=== PATIENT | female | born 1945 | race Caucasian/White ===

== ENCOUNTER 2016-09-13 08:51 | Emergency (ER) | payer MEDICARE, MEDICAID ==
[2016-09-13] MEDS ORDERED: HYDROcodone/ACETAMIN 5-325 MG* 1 TAB PO ONE (09:22)
[2016-09-13] MEDS ORDERED: Morphine INJ* 10 MG/ML 1 ML SYRINGE IM ONE (09:38)
--- NOTE | 2016-09-13 10:59 | RAD ---
INDICATION: Right humeral pain COMPARISON: Right shoulder same date TECHNIQUE: AP, lateral, and oblique views were obtained. FINDINGS: There is no acute humeral fracture. There is anterior dislocation at the glenohumeral joint. Please for to concurrent right shoulder exam. IMPRESSION: ANTERIOR RIGHT SHOULDER DISLOCATION
--- NOTE | 2016-09-13 11:00 | RAD ---
INDICATION: Right shoulder dislocation COMPARISON: Right humerus same date TECHNIQUE: Routine frontal, Y and axial views were obtained. FINDINGS: There is anterior shoulder dislocation. No acute fracture is seen but postreduction films can reevaluate for occult fracture. No additional findings.. IMPRESSION: ANTERIOR SHOULDER DISLOCATION.
--- NOTE | 2016-09-13 11:03 | ED ---
Upper Extremity Pain - HPI Summary HPI Summary: Patient presents to ED with CC of right arm, shoulder and clavicle pain s/p FOOSH injury 1 hour ago. Pain is 10/10, throbbing and stabbing, does not radiate. She is unable to adduct or abduct the arm at the shoulder. Pain on palpation throughout the shoulder and upper extremity. She states she heard a "snap" sound upon falling. No deformity noted. She is otherwise healthy. PMHx includes spinal stenosis and CAD. She denies hitting her head or LOC. Denies other symptoms at this time. - History of Current Complaint Chief Complaint: EDExtremityUpper Stated Complaint: FALL Time Seen by Provider: 09/13/16 09:02 Hx Obtained From: Patient Mechanism Of Injury: Direct Blow Onset/Duration: Started Hours Ago Timing: Constant Severity Initially: Moderate Severity Currently: Moderate Pain Location: Shoulder, Arm Character: Aching, Throbbing Aggravating Factor(s): Lifting, Flexion, Extension, Internal/External Rotation, Abduction, Adduction Alleviating Factor(s): Nothing Associated Signs & Symptoms: Positive: Weakness Related History: Dominant Hand Right - Risk Factors Non-Orthopedic Risk Factor: Negative DVT Risk Factors: Negative Septic Arthritis Risk Factor: Negative Compartment Syndrome Risk Factors: Pain - Allergies/Home Medications Allergies/Adverse Reactions: Allergies Allergy/AdvReac Type Severity Reaction Status Date / Time Azithromycin [From Zithromax] Allergy Unknown Verified 10/20/13 13:07 Reaction Details Ciprofloxacin [From Cipro] Allergy Rash Verified 07/30/15 15:49 Erythromycin Allergy Unknown Verified 10/20/13 13:07 Reaction Details Penicillins [PCN] Allergy Rash Verified 09/24/13 21:46 Sulfa Antibiotics Allergy Hives Verified 09/24/13 21:46 Tetracycline Allergy Hives Verified 09/24/13 21:46 PMH/Surg Hx/FS Hx/Imm Hx Previously Healthy: Yes Endocrine/Hematology History: Denies: Hx Diabetes Cardiovascular History: Reports: Hx Hypertension Denies: Hx Pacemaker/ICD Sensory History: Denies: Hx Hearing Aid Psychiatric History: Denies: Hx Panic Disorder - Surgical History Surgery Procedure, Year, and Place: CARDIAC STENTS X3 AT [facility] 2009 (3 medtronic endeavor sprint stents - safe at 3T keep ORAL under 2.0 w/kg). HYSTERECTOMY. NOSE SURGERY. RT BREAST TUMORS REMOVED - Immunization History Hx Pertussis Vaccination: No Immunizations Up to Date: Unable to Obtain/Confirm Infectious Disease History: No Infectious Disease History: Denies: Traveled Outside the [place] in Last 30 Days - Social History Occupation: Unemployed Lives: With Family Alcohol Use: None Hx Substance Use: No Substance Use Type: Reports: None Hx Tobacco Use: Yes Smoking Status (MU): Former Smoker Review of Systems Constitutional: Negative Cardiovascular: Negative Respiratory: Negative Positive: no symptoms reported, see HPI Positive: Arthralgia - right shoulder pain with right upper arm pain, Myalgia Skin: Negative Neurological: Negative Psychological: Normal All Other Systems Reviewed And Are Negative: Yes Physical Exam Triage Information Reviewed: Yes Vital Signs On Initial Exam: Initial Vitals Temp Pulse Resp BP Pulse Ox 97.0 F 86 20 166/56 98 09/13/16 08:55 09/13/16 08:55 09/13/16 08:55 09/13/16 08:55 09/13/16 08:55 Vital Signs Reviewed: Yes Appearance: Positive: Well-Appearing, Well-Nourished, Pain Distress Skin: Positive: Warm, Skin Color Reflects Adequate Perfusion Eyes: Positive: EOMI, ARNULFO, Conjunctiva Clear Neck: Positive: Supple, No Lymphadenopathy Respiratory/Lung Sounds: Positive: Clear to Auscultation, Breath Sounds Present Cardiovascular: Positive: Normal, RRR, Pulses are Symmetrical in both Upper and Lower Extremities Musculoskeletal: Positive: Pain @ - right shoulder on palpation, abduction, adduction, Other - sulcus sign over right shoulder suggesting anterior dislocation Neurological: Positive: Sensory/Motor Intact, Alert, Oriented to Person Place, Time Psychiatric: Positive: Other - tearful on exam - [place] Coma Scale Best Eye Response: 4 - Spontaneous Best Motor Response: 6 - Obeys Commands Best Verbal Response: 5 - Oriented Diagnostics - Vital Signs Vital Signs Temp Pulse Resp BP Pulse Ox 09/13/16 09:44 20 09/13/16 09:30 83 174/83 98 09/13/16 09:11 77 98 09/13/16 09:09 158/81 09/13/16 08:55 97.0 F 86 20 166/56 98 - Laboratory Lab Statement: Any lab studies that have been ordered have been reviewed, and results considered in the medical decision making process. Course/Dx - Course Course Of Treatment: Tearful on exam. Patient presents with right shoulder on palpation, abduction, adduction s/p FOOSH. Denies hitting head or LOC. Patient sent to xray of shoulder, humerus and clavicle. Sulcus sign over shoulder suggesting anterior dislocation. Conscious sedation by Dr. Erickson. Patient tolerated well. Exorotation used for reduction with success. Immediate shoulder immobilizer given. 1 week immobilizer instructions with pendulum exercises given. FINDINGS: There is anterior shoulder dislocation. No acute fracture is seen but. postreduction films can reevaluate for occult fracture. No additional findings.. IMPRESSION: ANTERIOR SHOULDER DISLOCATION. Post reduction films shows. IMPRESSION: INTERVAL REDUCTION OF RIGHT SHOULDER DISLOCATION. OSTEOARTHRITIS OF THE AC JOINT. - Diagnoses Differential Diagnosis/HQI/PQRI: Positive: Fracture (Open), Fracture (Closed), Strain, Sprain Provider Diagnoses: Shoulder dislocation Discharge - Discharge Plan Condition: Stable Disposition: HOME Patient Education Materials: Shoulder Dislocation Exercises (GEN) Referrals: Anthony Arechiga MD [Primary Care Provider] - Additional Instructions: Continue with arm sling x 1 week. Gentle exercises starting while sling is in place to reduce the risk of shoulder stiffness Ibuprofen 600mg three times daily For worsening pain or symptoms, you may follow up with ortho. I have given you a referral.
--- NOTE | 2016-09-13 11:04 | RAD ---
INDICATION: Right clavicle COMPARISON: Right shoulder same date TECHNIQUE: AP views were obtained. FINDINGS: No focal bony findings. The soft tissues are normal.. IMPRESSION: NEGATIVE CLAVICLE.
[2016-09-13] MEDS ORDERED: Ondansetron ODT TAB* 4 MG SL ONE (11:37)
[2016-09-13] MEDS ORDERED: fentaNYL* 50 MCG/ML 2 ML VIAL (100 MCG VIAL) IV SLOW PU ONE (11:37)
[2016-09-13] MEDS ORDERED: Flumazenil* 0.1 MG/ML 5 ML MDV IV ONE (11:37)
[2016-09-13] MEDS ORDERED: Ondansetron INJ* 2 MG/ML VIAL IV ONE (12:14)
[2016-09-13] MEDS ORDERED: Midazolam* 1 MG/ML 10 ML VIAL (10 MG) IV ONE (12:20)
[2016-09-13] MEDS ORDERED: Naloxone* 0.4 MG/ML 1 ML VIAL ONE (12:22)
[2016-09-13] MEDS ORDERED: Naloxone* 0.4 MG/ML 10 ML VIAL ONE (12:23)
--- NOTE | 2016-09-13 13:23 | RAD ---
HISTORY: Status post reduction COMPARISONS: September 13, 2016 at 10:18 AM VIEWS: 2, frontal and lateral views of the right shoulder FINDINGS: BONE DENSITY: There is diffuse osteopenia. BONES: There is no displaced fracture. JOINTS: There is osteoarthritis of the AC joint ALIGNMENT: There has been interval reduction of the right shoulder dislocation. The alignment is anatomic SOFT TISSUES: Unremarkable. OTHER FINDINGS: None. IMPRESSION: INTERVAL REDUCTION OF RIGHT SHOULDER DISLOCATION. OSTEOARTHRITIS OF THE AC JOINT
[2016-09-13 13:58] VITALS: BP 164/72
== END 2016-09-13 14:27 | disposition home or self-care (01) ==
LOC: ED 08:51
DX: S43.004A Unspecified dislocation of right shoulder joint, initial encounter (principal); W19.XXXA Unspecified fall, initial encounter; Y93.9 Activity, unspecified; Y92.9 Unspecified place or not applicable; Z87.891 Personal history of nicotine dependence
CPT/HCPCS: 96372; 96374; 99285; A9270-GY; J2250; J2270; J2310; J2405; J3010

== ENCOUNTER 2016-12-13 09:51 | Day surgery (SDC) | payer MEDICARE, MEDICAID ==
--- NOTE | 2016-11-20 07:03 | HP ---
PREOPERATIVE HISTORY AND PHYSICAL: DATE OF ADMISSION/SURGERY: 12/13/16 DATE OF OFFICE VISIT: 11/17/16 ATTENDING PHYSICIAN: Dr. Tushar King * (DICTATED BY YUSUF BRAR) PROCEDURE: Right shoulder arthroscopic decompression, debridement, and rotator cuff repair. CHIEF COMPLAINT: Right shoulder pain. HISTORY OF PRESENT ILLNESS: Ana is a 71-year-old female who presented to the clinic for right shoulder pain due to a complete tear of the supraspinatus tendon with retraction. She was given an injection at her last visit on . The patient states that the injection helped improve her neck pain; however , she continues to have aching shoulder pain in the lateral aspect of her shoulder. The injection did help her significantly increase range of motion of her shoulder. She has failed conservative measures and has, therefore, agreed to undergo a right shoulder arthroscopic decompression, debridement, and rotator cuff repair with Dr. King. PAST MEDICAL HISTORY: GERD, headache, back pain, hypertension, arthritis, fibromyalgia, and coronary artery disease with 5 stents in her heart. PAST SURGICAL HISTORY: Hysterectomy, breast lumpectomy, nose surgery, tonsillectomy, one diagnostic cardiac catheterization and 3 cardiac catheterizations with cardiac stent placement. MEDICATIONS: 1. Hydrocodone/acetaminophen 5/325 take 1 to 2 every 8 hours as needed for pain. 2. Crestor 10 mg 1 by mouth daily. 3. Lisinopril 20 mg 1 by mouth daily. 4. Protonix 40 mg 1 by mouth daily. 5. Vivelle-Dot 0.1 mg per day, 1 patch twice weekly. 6. Angelina D 12-Hour, allergy and congestion as needed. 7. Metoprolol succinate ER 50 mg once daily. 8. Aspirin low dose 81 mg once daily. 9. Hydrochlorothiazide 12.5 mg daily. 10. Isosorbide mononitrate ER 30 mg once daily. 11. Clopidogrel bisulfate 75 mg once daily. 12. Nitroglycerin 0.4 mg to use as needed for chest pain. ALLERGIES: PENICILLIN, TETRACYCLINE, and SULFA ANTIBIOTICS. FAMILY HISTORY: Positive for heart disease and diabetes. Denies family history of DVT or PE. SOCIAL HISTORY: She lives with her . She is disabled. She is a former smoker. She quit 7 years ago. She denies tobacco use or illegal drug use. REVIEW OF SYSTEMS: A 14-point review of systems was reviewed with the patient. Positive for headache, GERD, hypertension, and right shoulder pain and neck pain , otherwise negative. Denies fever, chills, night sweats or shortness of breath. Denies bleeding disorder. Denies history of DVT or PE. PHYSICAL EXAMINATION GENERAL: A 71-year-old, well-developed, well-nourished female, in no acute distress. Alert and oriented x3. Appropriate mood and affect. VITAL SIGNS: Height 66, weight 242. Pulse 86, respiratory rate 16, temperature 97.1, BMI 39.1. HEENT: Normocephalic, atraumatic. Throat clear. NECK: Supple. PULMONARY: Lungs are clear to auscultation bilaterally. No wheezing, rhonchi, or rales. CARDIOVASCULAR: Regular rate and rhythm. S1 and S2. No murmurs, gallops, or rubs. No edema. ABDOMEN: Positive bowel sounds, soft, nontender. NEUROLOGIC: Alert and oriented x3. Cranial nerves grossly intact. Sensation intact to light touch. MUSCULOSKELETAL: Right upper extremity, no warmth or erythema. Tenderness to palpation diffusely over the shoulder. Forward flexion 150 degrees, abduction 130 degrees, external rotation to 75 degrees, internal rotation to lumbar spine. Pain and weakness to her rotator cuff testing. Positive Neer, Speed, Dailey-Manjit, Tenstrike. +2 radial pulses. Sensation intact to light touch distally. Left upper extremity skin is intact. No evidence of erythema. Nontender to palpation. Full range of motion. +2 radial pulses. Sensation intact to light touch distally. DIAGNOSTIC STUDIES/LAB DATA: MRI of the right shoulder reveal complete tear of the supraspinatus tendon with 2 cm of retraction and mild muscle atrophy. C-spine x-rays performed today in clinic were reviewed by Dr. King and revealed mild osteoarthritis. IMPRESSION: Right shoulder rotator cuff tear. PLAN: The patient is scheduled to undergo a right shoulder arthroscopic decompression, debridement, and rotator cuff tear with Dr. King for treatment of the rotator cuff. In regards to the neck pain, x-rays show mild osteoarthritis; however, the neck pain improved with the injection. Therefore, neck pain will likely improve with surgical intervention of the shoulder and is coming from the shoulder, compensation for the shoulder. The patient has a history of cardiac stents. Therefore, will be cleared by cardio, who will dictate when to hold her Plavix preoperatively. She will also need clearance by her primary care physician. She will follow up with Dr. King in 10 to 14 days postop for followup and suture removal. Percocet will be used for postop pain management. YUSUF BRAR [id number]/[facility] #: [id number] CARA
[~2016-12-13 09:51] MED LIST: Buffered Lidocaine 0.9% SYRIN* 5 ML/SYR SYRINGE INTRADERM ONE; Famotidine IV* 10 MG/ML 2 ML (20 mg) IV ONE; Metoclopramide TAB* 10 MG PO ONE
[2016-12-13] MEDS ORDERED: Buffered Lidocaine 0.9% SYRIN* 5 ML/SYR SYRINGE ONE (10:00)
[2016-12-13] MEDS ORDERED: Famotidine IV* 10 MG/ML 2 ML (20 mg) ONE (10:00)
[2016-12-13] MEDS ORDERED: Metoclopramide TAB* 10 MG ONE ×2 (10:00→10:01)
[2016-12-13] MEDS ORDERED: Clindamycin 900 MG IVPREMIX(* 900 MG/50 ML SDV IV ONE (10:00)
[2016-12-13] MEDS ORDERED: Ketorolac INJ* 30 MG/ML 1 ML VIAL ONE (10:46)
[2016-12-13] MEDS ORDERED: Propofol* 10 MG/ML 20 ML BTL IV PUSH ONE (10:46)
[2016-12-13] MEDS ORDERED: Lidocaine 2% PF * 5 ML VIAL ONE (10:46)
[2016-12-13] MEDS ORDERED: fentaNYL* 50 MCG/ML 2 ML VIAL (100 MCG VIAL) ONE ×5 (10:46→14:47)
[2016-12-13] MEDS ORDERED: Dexamethasone IV* 4 MG/ML 1 ML (4 MG) ONE (10:46)
[2016-12-13] MEDS ORDERED: Ondansetron INJ* 2 MG/ML VIAL ONE (10:46)
[2016-12-13] MEDS ORDERED: Phenylephrine INJ* 10 MG/ML 1 ML VIAL (10 MG) ONE (10:46)
[2016-12-13] MEDS ORDERED: Cisatracurium* 2 MG/ML MDV 5 ML ONE (10:46)
[2016-12-13] MEDS ORDERED: Midazolam* 1 MG/ML 5 ML VIAL (5 MG) ONE (10:47)
[2016-12-13] MEDS ORDERED: KETAMINE HCL* 50 MG/ML 10 ML VIAL ONE (10:47)
[2016-12-13] MEDS ORDERED: Metoprolol Succinate XL TAB* 25 MG PO ONE (11:00)
[2016-12-13] MEDS ORDERED: Bupivacaine 0.25% SDV* 30 ML ONE ×2 (12:50→13:54)
[2016-12-13] MEDS ORDERED: DiMENhydriNATE IV* 50 MG/ML VIAL IV PUSH PRN (13:18)
[2016-12-13] MEDS ORDERED: Levalbuterol 0.63MG/3ML NEB* UNIT OF USE INH PRN (13:18)
[2016-12-13] MEDS ORDERED: Ondansetron INJ* 2 MG/ML VIAL IV PRN (13:18)
[2016-12-13] MEDS ORDERED: HYDROmorphone INJ* 1 MG/ML CARPUJECT SYRINGE ONE (13:21)
[2016-12-13] MEDS: fentaNYL* 50 MCG/ML 2 ML VIAL (100 MCG VIAL) IV PRN ×3 (14:24→14:47)
[2016-12-13] MEDS: oxyCODONE/Acetamin 5/325 MG* TAB PO PRN ×2 (14:28→14:29)
[2016-12-13] MEDS ORDERED: oxyCODONE/Acetamin 5/325 MG* TAB ONE (14:28)
[2016-12-13 16:13] VITALS: BP 174/86
--- NOTE | 2016-12-14 01:37 | OP ---
CC: PCP, Kyler Stokes MD * DATE OF OPERATION: 12/13/16 - [facility] DATE OF : 47 SURGEON: Tushar King MD. JBOSS DEVELOPER: YUSUF Lockett. An travel assistant was needed for the entirety of the case. ANESTHESIOLOGIST: Dr. Balderas. ANESTHESIA: General. PRE-OP DIAGNOSIS: Right shoulder full thickness retracted rotator cuff tear. POST-OP DIAGNOSES: Right rotator cuff tear with SLAP tear and mild osteoarthritis. OPERATIVE PROCEDURE: Right shoulder arthroscopy with: 1. Extensive glenohumeral debridement including chondroplasty and biceps tenotomy. 2. Subacromial decompression with acromioplasty. 3. Rotator cuff repair. IMPLANTS USED: Three Galeano and Nephew Healicoil and 2 MultiFix. COMPLICATIONS: None. ESTIMATED BLOOD LOSS: Minimal. INDICATIONS: Ana Lewis is a 71-year-old female who sustained an injury where she dislocated her shoulder several months ago. She failed conservative treatment and had persistent pain and documented rotator cuff tear. After extensive discussion, the risks and benefits of the operative versus nonoperative treatment, she is elected to proceed with surgical treatment. The risks included, but are not limited to bleeding, infection, damage to nerves, vessels, surrounding structures; wound nonhealing; persistent pain; need for further surgery; scarring; stiffness; incomplete relief of symptoms; persistent pain; need for further surgery; risks of anesthesia; and risk of DVT. She has elected to proceed. She underwent preoperative medical risk assessment and was optimized for surgery. DESCRIPTION OF PROCEDURE: The patient was greeted in the preoperative area by the attending surgeon. Correct extremity was marked and consent was confirmed. The patient was brought back to the operating suite where she was placed in the supine position on the operating room table. She then underwent general anesthesia and endotracheal intubation, after which she was positioned in the left lateral decubitus position with an axillary roll. All bony prominences were padded. She was supported with a peg board. The right arm was draped in stirrups in the traction frame. The right shoulder was prepped and draped in usual sterile fashion beginning with chlorhexidine soap, scrub, and alcohol wipe , and a final prep with ChloraPrep. After appropriate surgical pause indicating site, side, procedure, and administration of antibiotics, the standard postero-lateral portal was made sharply with an 11 blade. The scope was introduced into the joint. Joint was examined. There was abundant hyperemia and synovitis in the joint. The biceps was thickened and the superior labral tear, there was grade 2 changes with mild fraying. Along the superior portion of the glenohumeral head, inferior recess was intact with abundant synovitis. The anterior, posterior, and superior labrum had some mild fraying. The remainder of the humerus had grade 0 to 1 changes and the glenoid had grade 1 to 2 changes. The anterior portal was made in an outside-in fashion. The shaver was used to debride back the anterior, posterior, and superior labrum. A small chondroplasty was done of the unstable fraying edges such as humerus. The undersurface of the rotator cuff had an area of full-thickness retracted tear and also partial thickness tearing, high grade partial thickness with about 80% of the tendon torn. The biceps was thickened and synovitic as well and the biceps was then tenotomized. The subscapularis was identified and was found to be completely intact. Once the debridement was completed, the scope was positioned in the subacromial space. There was abundant synovitis in the bursa that was present. The lateral portal was made in an outside-in fashion. Shaver was used to do a bursectomy and then the undersurface of the acromion was identified and skeletonized using the electrocautery device. This revealed a moderate anterolateral spur. Acromioplasty was done using a 4-0 oval sherrie. All excess debris was removed from this portion of the case. Attention was directed to the rotator cuff. As stated previously, there was an area of full thickness tear as well as high-grade partial thickness tear. As evident, the cuff was probed and easily detached. The #11 blade as well as electro-cautery devices were used to complete the detachment. The greater tuberosity was fully visualized and prepared using the electrocautery device, the rasp as well as the 4-0 oval sherrie to remove the calcified cartilage layer. The rotator cuff was also debrided back using a shaver. This was also released from adhesions using a blunt probe. The cuff was manually able to be brought back to the tuberosity. At this point, 3 anchors were placed along the medial row, these were 4.75 Healicoil anchors placed with excellent purchase. The bone quality was quite poor however. The sutures were passed through the tendon beginning the supraspinatus and into the anterior portion of the infraspinatus tendon. These were then passed in horizontal mattress as well as simple configuration to fully restore and reapproximate the cuff. These were then tied down using arthroscopic knot tying. The excess tails were then passed through 2 MultiFix anchors for lateral row fixation. One was placed anteriorly and one was placed posteriorly on the lateral row. This allowed for approximation of the rotator cuff as well as compression of the remaining cuff to the foot print. The shoulder was then taken through gentle range of motion and found to be intact. Final images were obtained. All fluid and debris was removed from the shoulder. The wounds were then injected with 60 cc of 0.25% Marcaine plain. Sterile dressings were applied. The portals were closed with 3 -0 nylon. Sterile dressings were applied, Cryo/Cuff as well as an UltraSling. She was awoken from anesthesia and transferred to PACU in stable condition. POSTOPERATIVE PLAN: She will be nonweightbearing. No active range of motion of the shoulders. She will be allowed active range of motion of the elbow, wrist, and hand. She will be discharged on pain medications. DVT prophylaxis was considered, but deferred. She is on Plavix at baseline and we will restart her Plavix and aspirin on postop day 1. I will see the patient back in 10 to 14 days. [id number]/[facility] #: [id number] MTDD
== END 2016-12-13 16:00 | disposition home or self-care (01) ==
LOC: OR 09:51
PROVIDERS: ATTEND Orthopaedic Surgery
DX: S46.011A Strain of muscle(s) and tendon(s) of the rotator cuff of right shoulder, initial encounter (principal); Z79.899 Other long term (current) drug therapy; Z87.891 Personal history of nicotine dependence; I25.10 Atherosclerotic heart disease of native coronary artery without angina pectoris; Z95.5 Presence of coronary angioplasty implant and graft; Z79.01 Long term (current) use of anticoagulants; I10 Essential (primary) hypertension; R73.9 Hyperglycemia, unspecified; E78.5 Hyperlipidemia, unspecified; X58.XXXA Exposure to other specified factors, initial encounter; Y92.9 Unspecified place or not applicable
CPT/HCPCS: A9270-GY; C1713; J1100; J1170; J1885; J2250; J2405; J2704; J3010

== ENCOUNTER 2017-08-16 18:23 | Observation (INO) | payer MEDICAID, MEDICARE, OTHER ==
[2017-08-16] MEDS ORDERED: Ketorolac INJ* 30 MG/ML 1 ML VIAL IV PUSH ONE (19:21)
[2017-08-16] MEDS ORDERED: fentaNYL* 50 MCG/ML 2 ML VIAL (100 MCG VIAL) IV SLOW PU ONE ×2 (19:21→20:59)
[2017-08-16] MEDS ORDERED: Metoclopramide IV* 5 MG/ML 2 ML VIAL IV SLOW PU ONE (19:22)
[2017-08-16] MEDS ORDERED: methylPREDNISolone 125 MG* 2 ML VIAL IV ONE (19:22)
[2017-08-16 22:34] LABS: ABS Basophils 0.1 10^3/ul (0-0.2); ABS Eosinophils 0 10^3/ul (0-0.6); ABS Lymphocytes 0.7 10^3/ul (1.0-4.8); ABS Monocytes 0.2 10^3/ul (0-0.8); ABS Neutrophils 13.8 10^3/ul (1.5-7.7); ABS Nucleated RBC 0 10^3/ul; Eosinophil % 0 % (0-6); Hematocrit 43 % (35-47); Hemoglobin 13.8 g/dl (12.0-16.0); Lymphocyte % 4.7 % (25-47); Mean Corpuscular HGB Conc 32 g/dl (31-36); Mean Corpuscular Hemoglobin 28 pg (27-31); Mean Corpuscular Volume 88 fL (80-97); Mean Platelet Volume 7.1 um3 (7.4-10.4); Nucleated Red Blood Cells % 0; Platelet Count 317 10^3/ul (150-450); Red Blood Count 4.89 10^6/ul (4.0-5.4); Red Cell Distribution Width 15 % (10.5-15); White Blood Count 14.9 10^3/ul (3.5-10.8)
[2017-08-16] MEDS ORDERED: Albuterol 2.5 MG/3 ML NEB.SOL* (0.083%) INH PRN (22:35)
[2017-08-16] MEDS ORDERED: HYDROmorphone INJ* 2 MG/ML CARPUJECT SYRINGE IV PRN (22:35)
[2017-08-16] MEDS ORDERED: Acetaminophen TAB* 325 MG PO PRN (22:35)
[2017-08-16] MEDS ORDERED: Melatonin 3 MG TAB PO PRN (22:35)
[2017-08-16] MEDS ORDERED: Baclofen TAB* 10 MG PO PRN (22:36)
[2017-08-16] MEDS ORDERED: Ondansetron ODT TAB* 4 MG PO PRN (22:36)
[2017-08-16] MEDS ORDERED: oxyCODONE TAB* 5 MG TAB PO PRN (22:36)
[2017-08-16] MEDS ORDERED: Gabapentin CAP(*) 100 MG PO PRN (22:38)
--- NOTE | 2017-08-16 22:38 | HP ---
H&P (Free Text) History and Physical: PCP: WM Stkoes MD Date/Time: 08/16/2017 2220 CC: back pain HPI: Mrs Lewis is a 72YO obese female poor historian HX CAD/stent x5, HTN, HLD , fibromyalgia, OA, frequent cephalgia, chronic LBP, & GERD presents with onset last of severe sharp R-sided low back pain radiating to the RLE. She states it radiates straight down the back of the R leg "to the toes". She denies W/N/T, rash, F/C, sweats, and change in bowel/bladder. She has had no recent injury or change in activity. She states the pain was caused by the clindamycin she was given after her tooth extraction . PMedHx CAD/stent x5 HTN HLD fibromyalgia OA frequent cephalgia chronic LBP GERD Ambulatory Orders Aspirin EC TAB* [Ecotrin EC Low Dose 81 MG*] 81 mg PO DAILY 08/16/17 Clopidogrel TAB* [Plavix TAB*] 75 mg PO DAILY 08/16/17 Estradiol [Vivelle-Dot] 0.01 mg TD .TWICE A WEEK 08/16/17 Fexofenadine (NF) [Angelina 180 (NF)] 180 mg PO DAILY PRN 08/16/17 Gabapentin CAP(*) [Neurontin 100 mg CAP(*)] 100 mg PO TID PRN 08/16/17 Hydrochlorothiazide TAB* [Hydrodiuril TAB*] 12.5 mg PO DAILY 08/16/17 Isosorbide Mononitrate ER TAB* [Imdur ER TAB*] 30 mg PO DAILY 08/16/17 Lisinopril TAB* [Prinivil TAB*] 20 mg PO DAILY 08/16/17 Metoprolol Succinate XL TAB* [Toprol XL TAB*] 25 mg PO DAILY 08/16/17 Pantoprazole TAB (NF) [Protonix TAB (NF)] 80 mg PO DAILY 08/16/17 Rosuvastatin (NF) [Crestor (NF)] 10 mg PO DAILY 08/16/17 Allergies ciprofloxacin Allergy (Verified 08/16/17 18:43) Hives erythromycin base Allergy (Verified 08/16/17 18:43) Hives Penicillins Allergy (Verified 08/16/17 18:43) Hives tetracycline Allergy (Verified 08/16/17 18:43) Hives ALL SULFA CONTAINING PRODUCTS Allergy (Uncoded 12/13/16 10:15) HIVES- WHEN CONSUMES "TOO MUCH" PSurgHx nasal surgery tonsillectomy breast lumpectomy hysterectomy SocHx: former smoker, no alcohol or recreational drugs; lives with ; full code status FamHx: positive for CAD, HTN, HLD, & DM2 ROS: as above, otherwise reviewed and all were negative vitals: Vital Signs Temp 36.9 C 08/16/17 18:38 Pulse 71 08/16/17 22:01 Resp 17 08/16/17 22:01 BP 136/97 08/16/17 22:01 Pulse Ox 100 08/16/17 22:01 Intake & Output 08/15/17 08/16/17 08/16/17 23:59 11:59 23:59 Weight 101.605 kg Constitutional: NAD, normally developed, obese white female HEENM: atraumatic; sclera/conjunctiva: anicteric/clear; hearing: clinically intact; oropharynx: clear, mucosa moist Neck: soft tissue: non-tender; thyroid: normal Pulmonary: clear to auscultation bilaterally, good aeration, no accessory muscle use CV: RR/RR, normal S1S2, no carotid bruit, no jugular venous distention, 2+ B DP/ PT, no edema Abdominal: soft, non-distended, non-tender, no rebound/guarding/rigidity, normoactive bowel sounds, no hepatosplenomegaly or masses, no costovertebral angle tenderness Musculoskeletal: general: grossly intact, tender B shins (chronic per patient) Integumental: normal appearance and texture of exposed skin Psychiatric orientation: AA&O to PPS affect: calm mood: cooperative eye contact: fair content: reliable responses: timely insight: fair Impression: 72F presenting with acute on chronic LBP DIAGNOSIS & PLAN Primary acute on chronic LBP : continue gabapentin : pain control : PT evaluation in AM : supportive care Secondary CAD/stent x5 : continue aspirin, clopidogrel, lisinopril, metoprolol, rosuvastatin, & isosorbide mononitrate HTN : continue HCTZ, lisinopril, & metroprolol HLD : continue rosuvastatin fibromyalgia OA frequent cephalgia chronic LBP : continue gabapentin GERD : continue pantoprazole Admission Rational: observation for intractable low back pain DVTp: SCDs & heparin SQ Code Status: full HCP:
[2017-08-16 22:50] LABS: EGFR Non-African American 60.2 (>60)
--- NOTE | 2017-08-16 23:15 | ED ---
Elias Guerra Angela, scribed for Kimani Gabriel MD on 08/16/17 at 1919 . Back Pain - HPI Summary HPI Summary: This pt is a 72 y/o female presenting to [facility] via EMS c/o worsening right sided back pain x3 days. Pt reports her back pain radiates down her right leg. She states she has hx of left sided sciatica but usually her pain only lasts for 1 day and then resolves on its own. Pt has taken 3 gabapentin, 2 muscle relaxers, hydrocodone and 3 ibuprofen with minimal relief over the past 3 days. The last time she took pain medications was today at 12:00. Denies numbness, weakness, or tingling in LE, urinary or bowel incontinence/dysfunction, abd pain , fever. Pt lives with granddaughter and son. PMHx includes left sided sciatica, lower spine arthritis. - History of Current Complaint Chief Complaint: EDGeneral Stated Complaint: BACK PAIN Hx Obtained From: Patient Onset/Duration: Lasting Days, Still Present Onset/Duration: Started Days Ago, Atraumatic, Still Present Back Pain Location: Is Discrete @ - right sided back, Radiates To - right leg Severity Currently: Severe Pain Intensity: 10 Aggravating Symptom(s): Movement, Walking Alleviating Symptom(s): Rest Associated Signs And Symptoms: Negative: Fever, Weakness, Numbness, Tingling, Abdominal Pain, Bladder Incontinence, Bowel Incontinence - Allergies/Home Medications Allergies/Adverse Reactions: Allergies Allergy/AdvReac Type Severity Reaction Status Date / Time ciprofloxacin Allergy Hives Verified 08/16/17 18:43 erythromycin base Allergy Hives Verified 08/16/17 18:43 Penicillins Allergy Hives Verified 08/16/17 18:43 tetracycline Allergy Hives Verified 08/16/17 18:43 ALL SULFA CONTAINING PRODUCTS Allergy HIVES- Uncoded 12/13/16 10:15 WHEN CONSUMES "TOO MUCH" Home Medications: Home Medications Aspirin EC TAB* [Ecotrin EC Low Dose 81 MG*] 81 mg PO DAILY 08/16/17 [History Confirmed 08/16/17] Clopidogrel TAB* [Plavix TAB*] 75 mg PO DAILY 08/16/17 [History Confirmed ] Estradiol [Vivelle-Dot] 0.01 mg TD .TWICE A WEEK 08/16/17 [History Confirmed 09/26] Fexofenadine (NF) [Angelina 180 (NF)] 180 mg PO DAILY PRN 08/16/17 [History Confirmed 08/16/17] Gabapentin CAP(*) [Neurontin 100 mg CAP(*)] 100 mg PO TID PRN 08/16/17 [History Confirmed 08/16/17] Hydrochlorothiazide TAB* [Hydrodiuril TAB*] 12.5 mg PO DAILY 08/16/17 [History Confirmed 08/16/17] Isosorbide Mononitrate ER TAB* [Imdur ER TAB*] 30 mg PO DAILY 08/16/17 [History Confirmed 08/16/17] Lisinopril TAB* [Prinivil TAB*] 20 mg PO DAILY 08/16/17 [History Confirmed 08/16] Metoprolol Succinate XL TAB* [Toprol XL TAB*] 25 mg PO DAILY 08/16/17 [History Confirmed 08/16/17] Pantoprazole TAB (NF) [Protonix TAB (NF)] 80 mg PO DAILY 08/16/17 [History Confirmed 08/16/17] Rosuvastatin (NF) [Crestor (NF)] 10 mg PO DAILY 08/16/17 [History Confirmed 09/26] PMH/Surg Hx/FS Hx/Imm Hx Endocrine/Hematology History: Denies: Hx Diabetes Cardiovascular History: Reports: Hx Angina - HX OF, Hx Coronary Artery Disease - [address], Hx Hypertension - ON MEDICATION FOR Denies: Hx Pacemaker/ICD GI History: Reports: Hx Gastroesophageal Reflux Disease - ON MEDICATION FOR, Hx Hiatal Hernia History: Denies: Hx Renal Disease Musculoskeletal History: Reports: Hx Arthritis - SPINE, Other Musculoskeletal History - LEFT KNEE- STATES HAS A TEAR Sensory History: Reports: Hx Contacts or Glasses - GLASSES Denies: Hx Hearing Aid Opthamlomology History: Reports: Hx Contacts or Glasses - GLASSES Neurological History: Reports: Hx Migraine - THREE TIMES A WEEK-TREATS WITH EXCEDRIN MIGRAINE AND IBUPROFEN Psychiatric History: Denies: Hx Panic Disorder - Surgical History Surgery Procedure, Year, and Place: CARDIAC STENTS X3 AT [facility] 2009 (3 medtronic endeavor sprint stents - safe at 3T keep ORAL under 2.0 w/kg). 05/2016 -2 STENTS PLACED- [place]. HYSTERECTOMY. NOSE SURGERY - A CHILD FELL AND FX NOSE/ PASSAGES BLOCKED. RT BREAST TUMORS REMOVED. TONSILLECTOMY- A CHILD Hx Anesthesia Reactions: Yes - NAUSEA Infectious Disease History: No Infectious Disease History: Denies: Traveled Outside the [place] in Last 30 Days - Family History Known Family History: Positive: Cardiac Disease - Mother - Social History Alcohol Use: None Hx Substance Use: No Substance Use Type: Reports: None Hx Tobacco Use: Yes Smoking Status (MU): Former Smoker Amount Used/How Often: 1 PPD X 20 YEARS Have You Smoked in the Last Year: No Review of Systems Negative: Fever Negative: Chest Pain Negative: Shortness Of Breath Negative: Abdominal Pain Negative: incontinence - urinary or bowel Musculoskeletal: Other - POS: back pain Negative: Weakness, Paresthesia, Numbness All Other Systems Reviewed And Are Negative: Yes Physical Exam - Summary Physical Exam Summary: VITAL SIGNS: Reviewed. GENERAL: Patient is a well-developed and nourished female who is lying comfortable in the stretcher. Patient is not in any acute respiratory distress. HEAD AND FACE: No signs of trauma. No ecchymosis, hematomas or skull depressions. No sinus tenderness. EYES: PERRLA, EOMI x 2, No injected conjunctiva, no nystagmus. EARS: Hearing grossly intact. Ear canals and tympanic membranes are within normal limits. MOUTH: Oropharynx within normal limits. NECK: Supple, trachea is midline, no adenopathy, no JVD, no carotid bruit, no c- spine tenderness, neck with full ROM. CHEST: Symmetric, no tenderness at palpation LUNGS: Clear to auscultation bilaterally. No wheezing or crackles. CVS: Regular rate and rhythm, S1 and S2 present, no murmurs or gallops appreciated. ABDOMEN: Soft, non-tender. No signs of distention. No rebound no guarding, and no masses palpated. Bowel sounds are normal. MSK: FROM in all major joints, no edema, no cyanosis or clubbing. Tenderness over the right low back. Difficulty and pain with moving her right lower extremity. NEURO: Alert and oriented x 3. No acute neurological deficits. Speech is normal and follows commands. SKIN: Dry and warm Triage Information Reviewed: Yes Vital Signs On Initial Exam: Initial Vitals Temp Pulse Resp BP Pulse Ox 98.5 F 83 16 139/100 99 08/16/17 18:38 08/16/17 18:38 08/16/17 18:38 08/16/17 18:38 08/16/17 18:38 Vital Signs Reviewed: Yes Diagnostics - Vital Signs Vital Signs Temp Pulse Resp BP Pulse Ox 08/16/17 18:38 98.5 F 83 16 139/100 99 - Laboratory Lab Statement: Any lab studies that have been ordered have been reviewed, and results considered in the medical decision making process. Re-Evaluation - Re-Evaluation First Eval Re-Evaluation Time: 20:59 Change: Unchanged Comment: Pt is still complaining of pain. She states the pain medications are not working for her. I discussed with the pt that these medications should have her pain controlled and if they don't she might need to be admitted for pain control. Pt reports she does not want to be admitted. Another dose of 50 mcg fentanyl will be administered and if pt still has pain she will be admitted for pain control. Second Eval Re-Evaluation Time: 22:04 Change: Unchanged Comment: Pt is still complaining of pain. Plan to admit the pt. Back Pain Course/Dx - Course Assessment/Plan: Pt is a 72 y/o female who presents with worsening right sided back pain x3 days. Pt reports her back pain radiates down her right leg. She states she has hx of left sided sciatica but usually her pain only lasts for 1 day and then resolves on its own. Denies numbness, weakness, or tingling in LE, urinary or bowel incontinence/dysfunction, abd pain, fever. In the ED course the pt was given Reglan, Solu-medrol, Toradol, fentanyl. Despite the medications given to the pt, pt is still complainig of pain. She was given a second dose of 50 mcg fentanyl and her pain did not resolve. Therefore I discussed pt care with Dr. Snow, hospitalist, who accepted the pt for admission for pain control. - Diagnoses Provider Diagnoses: Right sided sciatica - Provider Notifications Discussed Care Of Patient With: Beny Snow Time Discussed With Above Provider: 22:07 Instructed by Provider To: Other - I discussed pt care with Dr. Snow, hospitalist, who accepted the pt for admission. Discharge - Sign-Out/Discharge Documenting (check all that apply): Discharge/Admit/Transfer - Admit - Discharge Plan Condition: Stable Disposition: ADMITTED TO [facility] Referrals: Kyler Stokes MD [Primary Care Provider] - Additional Instructions: Please follow up with your primary care provider. RETURN TO EMERGENCY DEPARTMENT FOR ANY NEW OR WORSENING SYMPTOMS. The documentation as recorded by the Elias coronel Angela accurately reflects the service I personally performed and the decisions made by me, Kimani Gabriel MD.
[2017-08-17] MEDS: traMADol TAB* 50 MG PO PRN ×2 (01:30→09:21)
[2017-08-17] MEDS ORDERED: Heparin VIAL(*) 5000 UNITS/ML VIAL (FIVE THOUSAND) SUBCUT SCH (06:00)
[2017-08-17 06:49] LABS: Hematocrit 42 % (35-47); Hemoglobin 13.7 g/dl (12.0-16.0); Mean Corpuscular HGB Conc 33 g/dl (31-36); Mean Corpuscular Hemoglobin 29 pg (27-31); Mean Corpuscular Volume 87 fL (80-97); Mean Platelet Volume 7.2 um3 (7.4-10.4); Platelet Count 363 10^3/ul (150-450); Red Blood Count 4.78 10^6/ul (4.0-5.4); Red Cell Distribution Width 15 % (10.5-15); White Blood Count 15.2 10^3/ul (3.5-10.8)
[2017-08-17 07:01] LABS: INR 0.96 (0.77-1.02)
[2017-08-17 07:07] LABS: EGFR Non-African American 55.3 (>60)
[2017-08-17 07:10] LABS: Urine Appearance Cloudy; Urine Blood Negative (Negative); Urine Color Yellow; Urine Ketones Negative (Negative); Urine Protein Negative (Negative); Urine Specific Gravity 1.017 (1.010-1.030); Urine Urobilinogen Negative (Negative)
[2017-08-17 07:28] VITALS: BP 129/74
[2017-08-17] MEDS ORDERED: Docusate CAP* 100 MG PO SCH (09:00)
[2017-08-17] MEDS ORDERED: Hydrochlorothiazide TAB* 25 MG PO SCH (09:00)
[2017-08-17] MEDS ORDERED: Metoprolol Succinate XL TAB* 25 MG PO SCH (09:00)
[2017-08-17] MEDS ORDERED: Clopidogrel TAB* 75 MG PO SCH (09:00)
[2017-08-17] MEDS ORDERED: CMCS: Pantoprazole TAB (NF) 40 MG TAB PO SCH (09:00)
[2017-08-17] MEDS ORDERED: Isosorbide Mononitrate ER TAB* 30 MG PO SCH (09:00)
[2017-08-17] MEDS ORDERED: Lisinopril TAB* 10 MG PO SCH (09:00)
[2017-08-17] MEDS ORDERED: Aspirin EC TAB* 81 MG TAB.EC PO SCH (09:00)
[2017-08-17] MEDS ORDERED: Atorvastatin* 20 MG TAB PO SCH (09:00)
--- NOTE | 2017-08-18 07:51 | DS ---
AMENDED REPORT NOW INCLUDES COSIGNER DESIGNATION - ESIGNED BEFORE ADJUSTMENTS DISCHARGE SUMMARY: DATE OF ADMISSION: 08/16/17 DATE OF DISCHARGE: 08/17/17 HOSPITAL STATUS: Observation. PROVIDER: Sanjeev Lange NP ATTENDING PHYSICIAN: Dr. Worley * (report dictated by Sanjeev Lange NP). PRIMARY CARE PROVIDER: Dr. Kyler Stokes. DISCHARGE DIAGNOSIS: Acute back pain, suspect secondary to musculoskeletal strain/sprain. SECONDARY DIAGNOSES: 1. History of coronary artery disease, status post 5 stents. 2. Hypertension. 3. Hyperlipidemia. 4. Fibromyalgia. 5. Osteoarthritis. 6. Chronic low back pain. 7. Gastroesophageal reflux disease. DISCHARGE MEDICATIONS: 1. Rosuvastatin 10 mg p.o. daily. 2. Plavix 75 mg p.o. daily. 3. Imdur ER 30 mg p.o. daily. 4. Gabapentin 100 mg p.o. t.i.d. p.r.n. 5. Metoprolol succinate XL 25 mg p.o. daily. 6. Angelina 180 mg p.o. daily p.r.n. 7. Aspirin 81 mg p.o. daily. 8. Protonix 80 mg p.o. daily. 9. Estradiol 0.01 mg transdermal twice weekly. 10. Lisinopril 20 mg p.o. daily. 11. Hydrocodone/acetaminophen 5/325 mg 1 tab p.o. q.12 hours p.r.n., max daily dose 2 tabs for 5 days only. HISTORY OF PRESENT ILLNESS AND HOSPITAL COURSE: For full admission details, please see history and physical by Dr. Snow, but in summary, this is a 72 -year-old female with a past medical history as stated above, who presents to the emergency department on 08/16/17 with complaints of severe sharp right- sided low back pain radiating down her right lower extremity. She reports that this had developed over several days and the day she decided to come to the emergency department, she could barely move or get out of bed. She denied any recent injury or trauma on admission, but today remembers that she did possibly moved something and thinks that she strained her back. She reports chronic low back pain in her baseline and is followed by her primary care provider, who was Tawnya Corona NP, who recently left [facility] and currently does not have a new PCP. She reports that Tawnya Corona NP, prescribes her Narco 60 tablets, 30 -day supply. I did check her I-STOP, which shows that the last prescription was written at the end of April. The patient states that she takes the Narco intermittently when she has pain only. Today, I will send her home with a 5- day supply and she was instructed to call [facility] to be set up with a new PCP for followup after discharge. The patient is ambulating around the unit and reports today that her pain is now down to 1/10. She has some residual right low back pain, but states radiation has resolved. She would like to be discharged to home. She denies any recent urinary tract symptoms such as dysuria, hematuria, increased urinary frequency. No recent fevers, chills, nausea, vomiting, abdominal pain, diarrhea, or constipation. Reports otherwise she has been in good health. PHYSICAL EXAMINATION: Vital Signs: Temperature 98.2, heart rate 75, respirations 18, O2 sat 98% on room air, and blood pressure 150/98. General Appearance: A 72-year-old obese female, alert and oriented x3, sitting up on the side of the bed, visiting with her daughter, in no acute distress. HEENT: Head is normocephalic, atraumatic. Pupils are equal and reactive to light. Oropharynx is clear. Moist mucous membranes. Neck: Supple. Cardiac: S1 and S2. Regular rate and rhythm. No murmurs, rubs, or gallops appreciated. No lower extremity edema noted. Lungs are clear to auscultation bilaterally. Good aeration throughout. Abdomen: Soft, nontender, and nondistended. Normal bowel sounds throughout. No CVA tenderness. Extremities: No clubbing, cyanosis, or edema noted. Neuro: Alert and oriented x3. Cranial nerves II through XII are grossly intact. DISCHARGE PLAN: 1. The patient was instructed to follow up with Dr. Stokes for her followup visit and she can schedule herself with a new [facility] MICA INSPECTOR after that visit if she wishes. Please note she did see Tawnya Corona NP, who now has left the practice and she has not been set up with a new PCP. 2. Follow up with urine culture. The patient's urinalysis appears to be negative. However, the urine culture has not resulted yet and is pending. This was discussed with the patient and her daughter to call [facility] office Sunday for urine culture results. 3. The patient is stable for discharge to home. TIME SPENT: Approximately 60 minutes was spent on this discharge. SANJEEV LANGE, MICA INSPECTOR [id number]/[facility] #: [id number] [facility]
== END 2017-08-17 12:00 | disposition home or self-care (01) ==
LOC: ED 18:23 → MED 22:32
PROVIDERS: ADMIT Hospitalist; ATTEND Internal Medicine
DX: M54.9 Dorsalgia, unspecified (principal); I25.10 Atherosclerotic heart disease of native coronary artery without angina pectoris; I10 Essential (primary) hypertension; E78.5 Hyperlipidemia, unspecified; M79.7 Fibromyalgia; M19.90 Unspecified osteoarthritis, unspecified site; K21.9 Gastro-esophageal reflux disease without esophagitis; Z79.82 Long term (current) use of aspirin; Z87.891 Personal history of nicotine dependence; M54.31 Sciatica, right side
CPT/HCPCS: 36415; 80048; 80053; 81003; 81015; 85025; 85027; 85610; 85730; 86140; 87077; 87086; 96374; 96375; 96376; 99284; A9270-GY; G0378; G8978-GP-CH; G8979-GP-CH; G8980-GP-CH; J1170; J1644; J1885; J2765; J2930; J3010